=== PATIENT | male | born 1985 | race Caucasian/White ===

== ENCOUNTER 2018-03-19 16:12 | Emergency (ER) | payer MEDICAID ==
[~2018-03-19] VITALS: Ht 175.3 cm; Wt 86.2 kg
[2018-03-19 16:31] VITALS: BP 139/97
--- NOTE | 2018-03-19 16:41 | NUR ---
32YO M TO ER FOR PENIAL PAIN WITH DISCHARGE X3. PT STATES BURNING AND PAIN WITH URINATION ALONG WITH THIN WHITE/YELLOW DISCHARGE. PAIN 03/30 . PT WITH NO OTHER MEDICAL CO AT THIS TIME. ER MD MADE AWARE. PT POSITIONED FOR COMFORT
--- NOTE | 2018-03-19 16:52 | NUR ---
Note [email or web address] in EDM - 03/19/18 at 1803 by [facility] 32YO M TO ER FOR PENIAL PAIN WITH DISCHARGE X3. PT STATES BURNING AND PAIN WITH URINATION ALONG WITH THIN WHITE/YELLOW DISCHARGE. PAIN 03/30 . PT WITH NO OTHER MEDICAL CO AT THIS TIME. ER MADE AWARE. PT POSITIONED FOR COMFORT
--- NOTE | 2018-03-19 16:52 | NUR ---
Patient being evaluated by physician at bedside.
[2018-03-19] MEDS ORDERED: cefTRIAXone 250 MG in LIDOCAINE MPF 1% - **ER/OR** 0.9 ML IM ONE (17:05)
[2018-03-19] MEDS ORDERED: AZITHROMYCIN 250 MG TAB PO ONE (17:05)
[2018-03-19 17:59] VITALS: BP 136/89
== END 2018-03-19 17:59 | disposition home or self-care (01) ==
LOC: MED 16:12
DX: N39.0 Urinary tract infection, site not specified (principal)
CPT/HCPCS: 81002; 96372; 99283; J0696; J2001

== ENCOUNTER 2018-05-08 21:14 | Emergency (ER) | payer SELFPAY ==
[~2018-05-08] VITALS: Ht 175.3 cm; Wt 86.2 kg
[2018-05-08 21:21] VITALS: BP 130/76
--- NOTE | 2018-05-08 21:23 | NUR ---
TO LOBBY A/W BED, AMBULATORY, VSS, TINO NOTED
[2018-05-08 21:24] VITALS: BP 130/76
--- NOTE | 2018-05-08 21:45 | NUR ---
PATIENT TO ER BED 9.
--- NOTE | 2018-05-08 21:50 | NUR ---
PATIENT IS A 32 Y/O MALE WHO PRESENTS TO THE ED C/O NECK PAIN. PT REPORTS 7/10 ACHING LEFT NECK PAIN THAT DOES NOT RADIATE. PT DENIES CP, SOB, N/V/D. NO OBVIOUS DEFORMITY OR TRAUMA. PT AWAKE AND ALERT, EVEN/UNLABORED. PT REPOSITIONED FOR COMFORT, BED IN LOWEST POSITION. ER MD DR. FOFANA NOTIFIED. WILL CONTINUE TO MONITOR.
--- NOTE | 2018-05-08 22:55 | NUR ---
PATIENT LEFT WITHOUT BEING SEEN BY DR. FOFANA. NO FURTHER CARE PROVIDED FOR PATIENT.
== END 2018-05-08 22:55 | disposition left against medical advice (07) ==
LOC: MED 21:14
DX: M54.2 Cervicalgia (principal); Z53.21 Procedure and treatment not carried out due to patient leaving prior to being seen by health care provider

== ENCOUNTER 2018-09-23 03:37 | Emergency (ER) | payer SELFPAY ==
[~2018-09-23] VITALS: Ht 175.3 cm; Wt 86.2 kg
[2018-09-23 03:39] VITALS: BP 141/88
--- NOTE | 2018-09-23 03:44 | NUR ---
PT TAKEN TO BED 7
[2018-09-23] MEDS ORDERED: PHENAZOPYRIDINE 100 MG TAB PO ONE (03:55)
[2018-09-23] MEDS ORDERED: AZITHROMYCIN 250 MG TAB PO ONE (03:55)
[2018-09-23] MEDS ORDERED: cefTRIAXone 250 MG in LIDOCAINE MPF 1% - 5 mL VIAL 0.9 ML IM ONE (03:55)
--- NOTE | 2018-09-23 04:03 | NUR ---
PT BIB self for burning urination x2 days. PT reports 7/10 burning urination. PT aslo reports thick yellow discharge. PT denies any odor with urination, fever, nausea, vomiting, or frequent urination. ER MD to see PT. Saftey precautions in place, will continue to monitor.
[2018-09-23] MEDS ORDERED: AZITHROMYCIN 250 MG TAB ONE (04:11)
--- NOTE | 2018-09-23 04:20 | NUR ---
Patient discharged with v/s stable. Written and verbal after care instructions given and explained. Patient alert, oriented and verbalized understanding of instructions. Ambulatory with steady gait. All questions addressed prior to discharge. ID band removed. Patient advised to follow up with PMD. Rx of doxycycline and pyridium given. Patient educated on indication of medication including possible reaction and side effects. Opportunity to ask questions provided and answered.
[2018-09-23 04:21] VITALS: BP 141/88
[2018-09-25 18:54] LABS: CHLAMYDIA TRACHOMATIS AMP DNA POSITIVE (NEGATIVE)
--- NOTE | 2018-09-26 07:52 | NUR ---
ADDENDUM: FROM 09/25/18. POSITIVE CHLAMYDIA & GONORRHEA. REFERRED TO DR. BARAKAT. NO FARTHER TX. PATIENT RECIEVED APPROPRIATE ANTIBIOTICS.
== END 2018-09-23 04:20 | disposition home or self-care (01) ==
LOC: MED 03:37
DX: N39.0 Urinary tract infection, site not specified (principal); R03.0 Elevated blood-pressure reading, without diagnosis of hypertension
CPT/HCPCS: 36415; 81002; 87491; 96372; 99283; J0696; J2001